=== PATIENT | female | born 1965 | race Caucasian/White ===

== ENCOUNTER 2020-09-30 09:42 | Emergency (ER) | payer OTHER, SELFPAY ==
[2020-09-30 10:19] VITALS: BP 95/64; PULSE 88; RESP 30; TEMP 36.4; O2SAT 91; BMI 20.6
--- NOTE | 2020-09-30 10:36 | ECG_ITS ---
[facility] Test Date: 2020-09-30 Pat Name: Sonya Louie Department: Room: Gender: Female [employer] Supervisor: : [id number] Requested By: Terell Edmonds Order Number: [id number] Elvira MD: Julian Harris M.D. Measurements Intervals [place] Rate: 81 P: 67 MI: 154 QRS: 41 QRSD: 99 T: 65 QT: 377 QTc: 440 Interpretive Statements SINUS RHYTHM INDETERMINATE AXIS INCOMPLETE RIGHT BUNDLE BRANCH BLOCK [90+ ms QRS DURATION, TERMINAL R IN V1/V2, 40+ ms S IN I/aVL/V4/V5/V6] No previous ECG available for comparison Electronically Signed On 10-01-2020 0:31:18 CDT by Julian Harris M.D. [id number]
--- NOTE | 2020-09-30 10:36 | XRR_ITS ---
PROCEDURE INFORMATION: Exam: XR Chest Exam date and time: 09/30/2020 10:36 AM Age: 55 years old Clinical indication: Cough and shortness of breath; Prior surgery; Surgery type: Breast; Patient HX: History--covid +, SOB, cough, weakness; Additional info: Dyspnea/cough TECHNIQUE: Imaging protocol: XR of the chest. Views: 1 view. COMPARISON: No relevant prior studies available. FINDINGS: Lungs: Hazy interstitial infiltrates are present in the lung bases which may be due to a viral interstitial pneumonia. The lung apices are clear. Pleural spaces: Unremarkable. No pleural effusion. No pneumothorax. Heart/Mediastinum: Unremarkable. No cardiomegaly. Bones/joints: Unremarkable. XR/XR chest 1V portable [id number] IMPRESSION: Hazy basilar interstitial infiltrates which may be due to an interstitial viral pneumonia.
--- NOTE | 2020-09-30 10:37 | W.ED.COVID ---
HPI - COVID General: Chief Complaint: COVID symptoms Stated Complaint: COVID +, SOB Time Seen by Provider: 09/30/20 09:44 Triage information: Has fever, cough or shortness of breath. Exposure to COVID + person last 14 days History of Present Illness: HPI Narrative: 55-year-old female presents emergency room complaining of lightheadedness dizziness generally not feeling well lack of energy. She is intermittently continued to have diarrhea. She continues some mild cough and shortness of breath. No vomiting. Did not receive antimonoclonal antibodies. She initially first had symptoms on September 20 she tested positive on September 23. MD complaint: known COVID positive Prior covid testing: yes, results known Prior testing date: 09/23/20 COVID 19 common symptoms: positive fever(s), chills, cough, non-productive cough, dyspnea, fatigue, body aches, headache(s), nasal congestion, nausea and diarrhea; negative vomiting COVID 19 other sytmptoms: negative chest pain or requiring oxygen Onset (ago): day(s) (10) Severity: mild Treatment prior to arrival: none COVID Results: No Data to Display Review of Systems Const: Reports: fever(s), chills, body aches and fatigue ENMT: Reports: nasal congestion Card: Denies: chest pain, edema, dyspnea on exertion or orthopnea Resp: Reports: dyspnea and non-productive cough GI: Reports: nausea and diarrhea; Denies: vomiting : Denies: flank pain, difficulty voiding, dysuria, urinary frequency or urinary urgency Skin/Breast: Denies: rash or pruritus Neuro: Reports: headache(s) Physical Exam Const: COMMON NORMALS: no acute distress GENERAL APPEARANCE: cooperative and comfortable ORIENTATION/CONSCIOUSNESS: Yes awake, Yes oriented to person, Yes oriented to place and Yes oriented to time HENMT: COMMON NORMALS: normocephalic, atraumatic and hearing grossly normal bilaterally HEAD & SCALP: normocephalic and atraumatic Eye: COMMON NORMALS: Equal, round and reactive pupils present, EOMs intact bilaterally, conjunctivae normal and no scleral icterus CONJUNCTIVA: Yes conjunctivae normal PUPIL: Yes Equal, round and reactive pupils present Neck/C-Spine: COMMON NORMALS: full ROM, no lymphadenopathy, supple and no JVD Lymph: LYMPHATIC: no lymphadenopathy noted and no lymphedema noted Resp: COMMON NORMALS: normal respiratory effort, No retractions, No use of accessory muscles and clear to auscultation bilaterally AUSCULTATION: clear to auscultation bilaterally Cardio: COMMON NORMALS: no JVD, regular rate, regular rhythm and No murmurs present (Cardio) RATE: regular rate RHYTHM: regular rhythm GI: COMMON NORMALS: Soft to palpation and No hepatosplenomegaly present AUSCULTATION: Yes normoactive bowel sounds PALPATION: Yes Soft to palpation, No Tenderness to palpation present (GI), No Guarding due to palpation present (GI) and Yes No hepatosplenomegaly present Extremity: COMMON NORMALS: normal to inspection, capillary refill normal, no clubbing, cyanosis or edema, no calf tenderness and no pedal edema Neuro: SENSORIUM/ORIENTATION: Yes oriented to person, Yes oriented to place and Yes oriented to time Skin: COMMON NORMALS: no rashes or lesions noted GENERAL SKIN EXAM: no rashes or lesions noted Course Vital Signs: Vital signs: Vital Signs Temperature 97.6 F 09/30/20 10:19 Pulse Rate 79 09/30/20 11:47 Respiratory Rate 30 H 09/30/20 11:47 Blood Pressure 109/69 09/30/20 11:47 Pulse Oximetry 94 09/30/20 12:41 MDM - COVID MDM Narrative: Medical decision making narrative: No pulmonary emboli does have findings consistent with Covid pneumonitis. Does not require oxygen did a home O2 eval and did not desaturate. Discharge home supportive cares fluid patient was concerned she is dehydrated however on her labs with no evidence of volume depletion. Return if has further problems. Lab Data: Labs: Lab Results 09/30/20 09/30/20 Range/Units 10:39 10:39 WBC 6.4 (4.0-10.0) 10^3/ uL RBC 4.39 (4.1-5.3) 10^6/u L Hgb 13.6 (11.5-15.3) g/dL Hct 39.8 (37.0-47.0) % MCV 90.7 (81-99) fL MCH 31.0 (28.0-34.0) pg MCHC 34.2 (30.0-36.0) g/dL RDW 12.7 (12.1-15.1) % Plt Count 189 (130-400) 10^3/c mm MPV 10.0 (7.4-10.4) fL Neut % (Auto) 76.5 % Lymph % (Auto) 14.8 % [place] % (Auto) 7.9 % Eos % (Auto) 0.0 % Baso % (Auto) 0.2 % Neut # (Auto) 4.91 (1.8-7.7) 10^3/u L Lymph # (Auto) 1.0 (0.8-4.8) 10^3/u L [place] # (Auto) 0.5 (0.2-0.9) 10^3/u L Eos # (Auto) 0.0 (0.0-0.8) 10^3/u L Baso # (Auto) 0.0 (0.0-0.1) 10^3/u L Nucleated RBC % (a uto) 0 % Nucleated RBCs # 0.0 /100WBC Sodium 132 L (136-145) mmol/L Potassium 4.0 (3.5-5.1) mmol/L Chloride 92 L (98-107) mmol/L Carbon Dioxide 29 (22-29) mmol/L Anion Gap 15.0 (5-19) BUN 10 (6-20) mg/dL Creatinine 0.7 (0.5-0.9) mg/dL GFR Calculation 86.9 L (90-130) mL/min Glucose 128 H (65-115) mg/dL Calculated Osmolal ity 275 L (285-295) mOsm/k g Calcium 8.3 L (8.5-10.5) mg/dL Total Bilirubin 0.6 (0.15-1.2) mg/dL AST 64 H (0-32) U/L ALT 37 H (0-33) U/L Alkaline Phosphata se 65 (35-105) IU/L Total Protein 7.0 (6.6-8.7) g/dL Albumin 3.5 (3.5-5.2) g/dL Globulin 3.5 (1.3-4.6) g/dL COVID Results: No Data to Display Discharge Plan Discharge Patient Disposition: Home Clinical Impression: COVID-19 Prescriptions: No Action Zyrtec-D 5-120 mg tablet extended release 12 hr 1 tab PO BID RF: 0 Synthroid 75 mcg tablet 75 mcg PO DAILY RF: 0 ergocalciferol (vitamin D2) 1,250 mcg (50,000 unit) capsule 1,250 mcg PO Q7D RF: 0 fluticasone propionate 50 mcg/actuation spray,suspension 2 spray INTRANASAL BID RF: 0 bupropion HCl 150 mg tablet extended release 24 hr 150 mg PO DAILY RF: 0 Discharge Orders: Discharge ED (Routine); Ordered 09/30/20 Ordered By: Terell Collier Discharge Diet: Clear Liquid Patient Instructions: Opioid Safety Coding Level of Care Code ED Message And Delivery Service Pricer for [place] Fwd Exam Comprehensive
[2020-09-30 10:48] LABS: Basophils % 0.2 %; Hematocrit 39.8 % (37.0-47.0); Hemoglobin 13.6 g/dL (11.5-15.3); Lymphocytes % 14.8 %; Mean Corpuscular HGB Conc 34.2 g/dL (30.0-36.0); Mean Corpuscular Volume 90.7 fL (81-99); Monocytes # 0.5 10^3/uL (0.2-0.9); Monocytes % 7.9 %; Neutrophils # 4.91 10^3/uL (1.8-7.7); Neutrophils % 76.5 %; Nucleated Red Blood Cells % 0 %; Platelet Count 189 10^3/cmm (130-400); Red Blood Count 4.39 10^6/uL (4.1-5.3); Red Cell Distribution Width 12.7 % (12.1-15.1); White Blood Count 6.4 10^3/uL (4.0-10.0)
--- NOTE | 2020-09-30 11:03 | CT_ITS ---
WS: [id number] CTA OF THE CHEST WITH PULMONARY EMBOLISM PROTOCOL TECHNIQUE: High-resolution contrast enhanced CTA of the chest with coronal and sagittal reformatted i mages with pulmonary embolism protocol. MIP images are also reviewed. CLINICAL INFORMATION: dyspnea/COVID COMPARISON: None. DLP: 377.[address] scans at [facility] use at least one of these dose optimization techniques: automat ed exposure control; mA and/or kV adjustment per patient size (includes targeted exams where dose is matched to clinical indication); or iterative reconstruction. FINDINGS: Proximal main pulmonary arteries are normal. Normal segmental and subsegmental pulmonary arteries. No filling defects. No evidence of pulmonary embolus. Diffuse bilateral groundglass infiltrates in the mid and lower lungs bilaterally subpleural in distri bution most likely due to COVID19 pneumonia. No focal consolidation or pleural fluid. Postoperative c hanges bilateral breast prosthesis. Normal caliber thoracic aorta. No mediastinal or hilar lymphadeno roberto. Normal thoracic spine. Small esophageal hiatal hernia. Low-attenuation lesion right hepatic lobe like ly hepatic cyst. CT/CT angio chest PE protcl [id number] IMPRESSION: 1. No evidence of pulmonary embolus. 2. Bilateral diffuse hazy groundglass infiltrates most likely due to COVID 19 pneumonia. 3. No focal consolidation or pleural fluid. 4. Small esophageal hiatal hernia.
[2020-09-30 11:08] LABS: Alanine Aminotransferase 37 U/L (0-33); Albumin Level 3.5 g/dL (3.5-5.2); Alkaline Phosphatase 65 IU/L (35-105); Aspartate Amino Transferase 64 U/L (0-32); Blood Urea Nitrogen 10 mg/dL (6-20); Calcium 8.3 mg/dL (8.5-10.5); Carbon Dioxide 29 mmol/L (22-29); Chloride 92 mmol/L (98-107); Globulin 3.5 g/dL (1.3-4.6); Glomerular Filtration Rate 86.9 mL/min (90-130); Glucose 128 mg/dL (65-115); Osmolality Calculated 275 mOsm/kg (285-295); Sodium 132 mmol/L (136-145); Total Bilirubin 0.6 mg/dL (0.15-1.2)
[2020-09-30 11:39] LABS: Slide Review Slide Review Perform
[2020-09-30 11:47] VITALS: BP 109/69; PULSE 79; RESP 30; O2SAT 94
[2020-09-30] MEDS: iohexol 350 mg/mL 100 mL Btl IV (11:56)
[2020-09-30 12:41] VITALS: O2SAT 94; O2SAT 97
== END 2020-09-30 13:34 | disposition home or self-care (01) ==
LOC: ER 10:41
PROVIDERS: Emergency Provider Family Medicine
DX: U07.1 COVID-19 (principal)
CPT/HCPCS: 71045; 71275; 80053; 85025; 93005; 99283; Q9967